=== PATIENT | male | born 1955 | race African-American/Black ===

== ENCOUNTER 2021-07-29 07:59 | Emergency (ER) | payer BC, OTHER ==
[~2021-07-29] VITALS: Ht 182.9 cm; Wt 158.8 kg
--- NOTE | 2021-07-29 08:22 | NUR ---
Patient bibra from snf, c/o chest pain, nitro given 3 tabs and aspirin with relief. On 2 lpm via nc, connected to the monitor and pulse ox. Kept comfortable, will continue to monitor accordingly.
[2021-07-29] MEDS ORDERED: BISA10SU11 RC (08:28)
[2021-07-29] MEDS ORDERED: HYDR-4209 PO (08:28)
[2021-07-29] MEDS ORDERED: GABA-532 PO (08:28)
[2021-07-29] MEDS ORDERED: TRAM100T39 PO (08:28)
[2021-07-29] MEDS ORDERED: CHOL200013 PO (08:28)
[2021-07-29] MEDS ORDERED: MULT-439 PO (08:28)
[2021-07-29] MEDS ORDERED: METO25TA6 PO (08:28)
[2021-07-29] MEDS ORDERED: APIX5TAB PO (08:28)
[2021-07-29] MEDS ORDERED: AMIN887L PO (08:28)
[2021-07-29] MEDS ORDERED: NA P133E RC (08:28)
[2021-07-29] MEDS ORDERED: SILD100T PO (08:28)
[2021-07-29] MEDS ORDERED: CYAN-51 PO (08:28)
[2021-07-29] MEDS ORDERED: TORS20TA3 PO (08:28)
[2021-07-29] MEDS ORDERED: MAGN400O6 PO (08:28)
--- NOTE | 2021-07-29 08:29 | NUR ---
covid swab collected and sent to lab.
[2021-07-29 08:42] LABS: BASOPHILS % (AUTO) 0.2 % (0.0-2.0); EOSINOPHILS % (AUTO) 0.7 % (0.0-6.0); HEMATOCRIT 42 % (39-51); LYMPHOCYTES # (AUTO) 1.4 K/uL (0.8-4.8); LYMPHOCYTES % (AUTO) 22.7 % (20.0-44.0); MEAN CORPUSCULAR HGB CONC 33 g/dl (31.0-36.0); MEAN CORPUSCULAR VOLUME 93 fL (80-96); MONOCYTES # (AUTO) 0.4 K/uL (0.1-1.30); MONOCYTES % (AUTO) 7.3 % (2.0-12.0); NEUTROPHILS # (AUTO) 4.1 K/uL (1.8-8.9); NEUTROPHILS % (AUTO) 69.1 % (43.0-81.0); PLATELET COUNT (AUTO) 240 K/uL (150-450); RED BLOOD CELL COUNT(AUTO) 4.58 MIL/uL (4.5-6.0)
--- NOTE | 2021-07-29 08:50 | NUR ---
MOVE SHEET SUBMITTED.
[2021-07-29 08:52] LABS: ALANINE AMINOTRANSFERASE 34 U/L (12-78); ALBUMIN 2.5 g/dL (3.4-5.0); ALKALINE PHOSPHATASE 80 U/L (46-116); ASPARTATE AMINOTRANSFERASE 21 U/L (15-37); BILIRUBIN,DIRECT 0.3 mg/dL (0.0-0.2); BILIRUBIN,TOTAL 0.8 mg/dL (0.2-1.0); CARBON DIOXIDE 25 mmol/L (21-32); CHLORIDE 102 mmol/L (98-107); CREATININE 2.7 mg/dL (0.6-1.3); GLUCOSE 110 mg/dL (74-106); POTASSIUM 5.1 mmol/L (3.5-5.1); SODIUM SERUM 134 mmol/L (136-145); TOTAL PROTEIN, SERUM 7.2 g/dL (6.4-8.2); UREA NITROGEN, BLOOD 51 mg/dL (7-18)
--- NOTE | 2021-07-29 08:55 | NUR ---
Janiya [phone]
--- NOTE | 2021-07-29 09:10 | NUR ---
CALLED [facility] [phone]
--- NOTE | 2021-07-29 09:40 | NUR ---
DR HERNANDEZ ON THE PHONE WITH DR CHICA RAMOS .
--- NOTE | 2021-07-29 09:58 | NUR ---
THE PATIENT IS ACCEPTED TO [facility] UNDER DR MADDY HAELY THE PATIENT WILL GO TO ER FOR REPORT CALL [phone] TRANSPO IS ARRANGED BY COLONY AND AUTOMATIC DRILLING MACHINE OPERATOR IS AT 1100
--- NOTE | 2021-07-29 10:09 | NUR ---
report given to William VINCENT from [facility] for sacha.
[2021-07-29 11:14] VITALS: BP 106/55
--- NOTE | 2021-07-29 11:15 | NUR ---
patient picked up by private ambulance in no distress going to [facility] ER in no distress, denies any pain.
== END 2021-07-29 11:15 | disposition short-term general hospital (02) ==
LOC: ER 08:02
DX: R07.9 Chest pain, unspecified (principal); Z88.8 Allergy status to other drugs, medicaments and biological substances; R29.810 Facial weakness; I48.91 Unspecified atrial fibrillation; Z79.01 Long term (current) use of anticoagulants; Z20.822 Contact with and (suspected) exposure to COVID-19
CPT/HCPCS: 36415; 71045; 80048; 80076; 84484; 85025; 87426; 93005; 99285; C9803; U0003

== ENCOUNTER 2021-11-19 21:53 | Inpatient (IN) | payer BC, MEDICARE, OTHER ==
[~2021-11-19] VITALS: Ht 180.3 cm; Wt 165.6 kg
[~2021-11-19 21:53] MED LIST: AMIN887L PO; APIX5TAB PO; BISA10SU11 RC; CHOL200013 PO; CYAN-51 PO; GABA-532 PO; HYDR-4209 PO; MAGN400O6 PO; METO25TA6 PO; MULT-439 PO; NA P133E RC; SILD100T PO; TORS20TA3 PO; TRAM100T39 PO
--- NOTE | 2021-11-19 22:01 | NUR ---
МАРИЯ MATHEW (DAUGHTER) - [phone]
[2021-11-19] MEDS ORDERED: ALBUTEROL FS 2.5 MG/3 ML VIAL.NEB ONE (22:11)
[2021-11-19] MEDS ORDERED: IPRATROPIUM NEB FS 0.5 MG/2.5 ML AMPUL.NEB ONE (22:11)
--- NOTE | 2021-11-19 22:15 | NUR ---
RT AT PT'S BEDSIDE
[2021-11-19] MEDS ORDERED: methylPREDNISolone SOD SUCC 125 MG/2ML VIAL ONE (22:19)
[2021-11-19 22:30] LABS: BASOPHILS % (AUTO) 0.6 % (0.0-2.0); HEMATOCRIT 41 % (39-51); HEMOGLOBIN 13.2 g/dL (13.5-17.5); LYMPHOCYTES # (AUTO) 0.8 K/uL (0.8-4.8); MEAN CORPUSCULAR HGB CONC 33 g/dl (31.0-36.0); MEAN CORPUSCULAR VOLUME 93 fL (80-96); MONOCYTES # (AUTO) 0.3 K/uL (0.1-1.30); MONOCYTES % (AUTO) 6.8 % (2.0-12.0); NEUTROPHILS # (AUTO) 3.7 K/uL (1.8-8.9); NEUTROPHILS % (AUTO) 76.6 % (43.0-81.0); PLATELET COUNT (AUTO) 112 K/uL (150-450); RED BLOOD CELL COUNT(AUTO) 4.35 MIL/uL (4.5-6.0); WHITE BLOOD COUNT (AUTO) 4.8 K/uL (4.3-11.0)
[2021-11-19] MEDS ORDERED: IPRATROPIUM NEB FS 0.5 MG/2.5 ML AMPUL.NEB NEB ONE (22:30)
[2021-11-19] MEDS ORDERED: ALBUTEROL FS 2.5 MG/3 ML VIAL.NEB CONTNEB ONE (22:30)
[2021-11-19] MEDS ORDERED: methylPREDNISolone SOD SUCC 125 MG/2ML VIAL IV ONE (22:30)
[2021-11-19 22:54] LABS: CARBON DIOXIDE 27 mmol/L (21-32); CHLORIDE 105 mmol/L (98-107); CREATININE 1.1 mg/dL (0.6-1.3); GLUCOSE 141 mg/dL (74-106); POTASSIUM 3.7 mmol/L (3.5-5.1); SODIUM SERUM 136 mmol/L (136-145); UREA NITROGEN, BLOOD 16 mg/dL (7-18)
--- NOTE | 2021-11-19 23:03 | NUR ---
BIB R 102 FROM [facility] C/O SOB&WHEEZING. DX BRONCHITIS X3 DAYS. COVID + AT [facility]. MANAGER BUILDING ALBUTERAL 5MG 8LPM GIVEN. ON 4LPM VIA N/C AT [facility] USUALLY. PT A/OX3. VSS. CONNECTED PT TO POX AND MONITOR
[2021-11-19 23:08] LABS: ALANINE AMINOTRANSFERASE 20 U/L (12-78); ALBUMIN 2.9 g/dL (3.4-5.0); ALKALINE PHOSPHATASE 86 U/L (46-116); ASPARTATE AMINOTRANSFERASE 13 U/L (15-37); BILIRUBIN,DIRECT 0.1 mg/dL (0.0-0.2); BILIRUBIN,TOTAL 0.2 mg/dL (0.2-1.0); TOTAL PROTEIN, SERUM 7.4 g/dL (6.4-8.2)
[2021-11-20] MEDS ORDERED: LEVOFLOXACIN 750 MG /D5W 150ML PIGGYBACK IV ONE (00:30)
[2021-11-20] MEDS ORDERED: LEVOFLOXACIN 750 MG /D5W 150ML 150 ML IV ONE (00:42)
[2021-11-20] MEDS ORDERED: ACETAMINOPHEN 325 MG TABLET PO PRN (01:00)
[2021-11-20] MEDS ORDERED: Z GUARD REMEDY 4 OZ OINT TP PRN (01:00)
[2021-11-20] MEDS ORDERED: ALBUTEROL FS 2.5 MG/3 ML VIAL.NEB NEB PRN (01:00)
[2021-11-20] MEDS ORDERED: ONDANSETRON HCL/PF 4 MG/2 ML VIAL IVP PRN (01:00)
[2021-11-20] MEDS ORDERED: IPRATROPIUM NEB FS 0.5 MG/2.5 ML AMPUL.NEB NEB PRN (01:00)
[2021-11-20] MEDS ORDERED: MAG HYDROX/AL HYDROX/SIMETH 30 ML UDC PO PRN (01:00)
[2021-11-20] MEDS ORDERED: MAGNESIUM HYDROXIDE 30 ML UDC PO PRN ×2 (01:00→11:30)
--- NOTE | 2021-11-20 01:08 | NUR ---
COVID PCR SWAB COLLECTED AND SENT TO LAB
[2021-11-20] MEDS ORDERED: PREG75CA PO (02:53)
[2021-11-20] MEDS ORDERED: ALPR-388 PO (02:53)
[2021-11-20] MEDS ORDERED: BISO5TAB20 PO (02:53)
--- NOTE | 2021-11-20 02:57 | NUR ---
room 201
--- NOTE | 2021-11-20 03:38 | NUR ---
REPORT GIVEN TO CARLTON CASTELLON
--- NOTE | 2021-11-20 03:38 | NUR ---
RN notes Received report from CARLTON Guerra ER nurse.
--- NOTE | 2021-11-20 04:04 | NUR ---
PT TRANSFERRED TO MS2 ROOM 201 VIA ACLS PROTOCOL. ALL BELONGINGS WITH PT. PT TOLERATED TRANSFER WELL.
[2021-11-20] MEDS: methylPREDNISolone SOD SUCC 40 MG/ML VIAL IV SCH ×3 (04:24→21:19)
[2021-11-20 04:30] VITALS: BP 140/86
--- NOTE | 2021-11-20 04:30 | NUR ---
admissions consultant notes Received Pt from ER nurse, CARLTON Landon. Pt is alert and orientedX4. Respiration on 3 L NC. No SOB. No S/S of distress noted. IV sites at L forearm # 20 is clean, intact and flush well and SL. Tele monitor showed afib hr at 90. Skin assessment is done and performed and pictures takes. Reorient Pt to the room and the use of call light. Pt verbalized understanding. Pt's belonging was checked by JINA Sepulveda. Safety precautions is maintained. Bed at low position, brakes locked, side rails upX2, hob elevated and call light is within reach. Will continue to monitor.
--- NOTE | 2021-11-20 06:40 | NUR ---
RN closing notes Pt is watching TV in bed comfortably. Pt is alert and orientedX4. Respiration on 3 L NC. No SOB. No S/S of distress noted. IV sites at L forearm # 20 is clean, intact and flush well and SL. Tele monitor showed afib hr at 99. Kept Pt clean, dry and comfortable. Safety precautions is maintained. Bed at low position, brakes locked, side rails upX2, hob elevated and call light is within reach. Will endorse to am nurse for GALINA.
--- NOTE | 2021-11-20 07:27 | NUR ---
RN NOTES PATIENT IN BED RESTING, CURRENTLY ON FACETIME VIDEO CALL W/ DAUGHTERS. NOT IN ACUTE DISTRESS. CALL LIGHT PROVIDED TO PATIENT.
[2021-11-20] MEDS ORDERED: IPRA4AER IH (07:50)
[2021-11-20] MEDS ORDERED: ASCO-352 PO (07:50)
[2021-11-20] MEDS ORDERED: ACET-868 PO (07:50)
[2021-11-20 08:00] VITALS: BP 155/88
[2021-11-20] MEDS: FUROSEMIDE 40 MG/4 ML VIAL IV SCH ×2 (08:21→11:21)
[2021-11-20] MEDS: PANTOPRAZOLE 40 MG TABLET.DR PO SCH (08:21)
[2021-11-20] MEDS: POTASSIUM CHLORIDE 20 MEQ TAB.PRT.SR PO SCH ×3 (08:21→09:51)
--- NOTE | 2021-11-20 08:40 | NUR ---
RN NOTES DIRECTOR RELIGIOUS EDUCATION AT BEDSIDE FOR ECHO.
[2021-11-20] MEDS ORDERED: APIXABAN 5 MG TABLET PO SCH (09:00)
--- NOTE | 2021-11-20 09:42 | NUR ---
RN NOTES OBTAINED CONTACT INFORMATION FROM PATIENT: МАРИЯ MATHEW (DTR, CONTACT FIRST) - [phone] DONNA HEARD (DTR, PROVIDES TRANSPORTATION) - [phone] GINO MENDES (DTR, [id number]) - [phone]
[2021-11-20] MEDS: TRAMADOL HCL 50 MG TABLET PO PRN (11:37)
[2021-11-20 12:00] VITALS: BP 160/74
[2021-11-20] MEDS: BISOPROLOL FUMARATE 5 MG TABLET PO SCH (12:13)
--- NOTE | 2021-11-20 13:00 | NUR ---
RN NOTES PATIENT SEEN BY DR. HERNANDEZ AT BEDSIDE.
[2021-11-20 16:00] VITALS: BP 159/99
[2021-11-20] MEDS: PREGABALIN 25 MG CAPSULE PO SCH (16:29)
[2021-11-20] MEDS: PROSOURCE / PROSTAT (PYXIS) 30 ML UDC PO SCH (16:29)
[2021-11-20] MEDS: APIXABAN 5 MG TABLET PO SCH (16:30)
--- NOTE | 2021-11-20 17:00 | NUR ---
RN NOTES RECEIVED CALL FOR DELIVERY OF [facility]; WILL DELIVER LATER TODAY.
--- NOTE | 2021-11-20 19:10 | NUR ---
TELE/RN OPENING NOTE RECEIVED PATIENT RESTING IN BED. AWAKE, ALERT AND ORIENTED X 4. ABLE TO MAKE NEEDS KNOWN. DENIES PAIN AT THIS TIME. CONTINUES ON O2 3L VIA NC WITH NO S/SX OF RESPIRATORY DISTRESS NOTED. IV ACCESS TO LEFT FOREARM #20G INTACT, PATENT AND SALINE LOCKED. CONTINUES ON IV ABX. TELE MONITOR IN PLACE WITH CURRENT READING AFIB CONTROLLED HR 93. CALL LIGHT WITHIN REACH. ASPIRATION, FALL AND SAFETY PRECAUTIONS MAINTAINED. WILL CONTINUE TO MONITOR.
--- NOTE | 2021-11-20 19:20 | NUR ---
RN NOTES PATIENT CHANGED IN BED AND REPOSITIONED; ABLE TO ASSIST W/ ADL AND BED MOBILITY. NOT IN ACUTE DISTRESS AT THIS TIME. DUE MEDS GIVEN TODAY. SAFETY MEASURES MAINTAINED. ENDORSED TO EMAIL DESIGNER RN FOR GALINA.
[2021-11-20 20:00] VITALS: BP 137/87
--- NOTE | 2021-11-20 23:28 | NUR ---
TELE/RN NOTE PATIENT WITH C/O PRODUCTIVE COUGH. UNABLE TO SLEEP. REQUESTING COUGH SYRUP. NOTIFIED MILK TESTER MD MÉNDEZ WITH NEW ORDER FOR GUAIFENESIN Q6HRS PRN. ORDER INPUTTED AND CARRIED OUT.
[2021-11-20] MEDS ORDERED: GUAIFENESIN 300 MG/15 ML UDC PO PRN (23:30)
[2021-11-20] MEDS ORDERED: GUAIFENESIN/D-METHORPHAN HB 5 ML UDC ONE (23:51)
[2021-11-20] MEDS ORDERED: GUAIFENESIN/D-METHORPHAN HB 5 ML UDC PO PRN (23:56)
[2021-11-21] VITALS: BP 105/59
--- NOTE | 2021-11-21 00:13 | NUR ---
TELE/RN NOTE NURSING PODIATRY DOCTOR HAD TO MANUALLY PULL OUT ROBITUSSIN MEDICATION. ORDER WAS CHANGED AFTER PODIATRY DOCTOR PULLED MEDICATION. NEW ORDER IS SMALLER DOSE THAN ORIGINAL. OMNICELL WOULDN'T ALLOW RETURN OF UNUSED MEDICATION. PLACED EXTRA DOSES IN PATIENTS CASSETTE.
[2021-11-21] MEDS: LEVOFLOXACIN 750 MG /D5W 150ML 750 MG in PREMIX 1 EA IV SCH (01:02)
[2021-11-21 04:00] VITALS: BP 163/107
[2021-11-21] MEDS: methylPREDNISolone SOD SUCC 40 MG/ML VIAL IV SCH ×3 (05:07→21:44)
[2021-11-21 06:01] LABS: BASOPHILS % (AUTO) 0.2 % (0.0-2.0); HEMATOCRIT 40 % (39-51); HEMOGLOBIN 13.1 g/dL (13.5-17.5); LYMPHOCYTES # (AUTO) 0.6 K/uL (0.8-4.8); LYMPHOCYTES % (AUTO) 9.7 % (20.0-44.0); MEAN CORPUSCULAR HGB CONC 33 g/dl (31.0-36.0); MEAN CORPUSCULAR VOLUME 93 fL (80-96); MONOCYTES # (AUTO) 0.4 K/uL (0.1-1.30); MONOCYTES % (AUTO) 5.5 % (2.0-12.0); NEUTROPHILS # (AUTO) 5.5 K/uL (1.8-8.9); NEUTROPHILS % (AUTO) 84.6 % (43.0-81.0); PLATELET COUNT (AUTO) 115 K/uL (150-450); RED BLOOD CELL COUNT(AUTO) 4.31 MIL/uL (4.5-6.0); WHITE BLOOD COUNT (AUTO) 6.5 K/uL (4.3-11.0)
--- NOTE | 2021-11-21 06:10 | NUR ---
TELE/RN OPENING NOTE PATIENT CURRENTLY RESTING IN BED. AWAKE, ALERT AND ORIENTED X 4. ABLE TO MAKE NEEDS KNOWN. DENIES PAIN AT THIS TIME. CONTINUES ON O2 3L VIA NC WITH NO S/SX OF RESPIRATORY DISTRESS NOTED. IV ACCESS TO LEFT FOREARM #20G INTACT, PATENT AND SALINE LOCKED. CONTINUES ON IV ABX. TELE MONITOR IN PLACE WITH CURRENT READING AFIB CONTROLLED. CALL LIGHT WITHIN REACH. ASPIRATION, FALL AND SAFETY PRECAUTIONS MAINTAINED. WILL ENDORSE PLAN OF CARE TO ONCOMING SHIFT.
--- NOTE | 2021-11-21 07:07 | NUR ---
TELE/RN OPENING NOTE RECEIVED PATIENT RESTING IN BED. AWAKE, ALERT AND ORIENTED X 4. ABLE TO MAKE NEEDS KNOWN. DENIES PAIN AT THIS TIME. PATIENT IS BREATHING EVENLY AND NONLABORED ON O2 3L VIA NC WITH NO S/SX OF RESPIRATORY DISTRESS NOTED. IV ACCESS TO LEFT FOREARM #20G INTACT, PATENT AND SALINE LOCKED. TELE MONITOR IN PLACE. SAFETY MEASURES IN PLACE CALL LIGHT WITHIN REACH. ASPIRATION, FALL AND SAFETY PRECAUTIONS MAINTAINED. WILL CONTINUE TO MONITOR.
[2021-11-21 08:00] VITALS: BP 151/100
[2021-11-21 08:18] LABS: ALANINE AMINOTRANSFERASE 59 U/L (12-78); ALBUMIN 2.6 g/dL (3.4-5.0); ALKALINE PHOSPHATASE 72 U/L (46-116); ASPARTATE AMINOTRANSFERASE 35 U/L (15-37); BILIRUBIN,TOTAL 0.3 mg/dL (0.2-1.0); CALCIUM, SERUM 8.2 mg/dL (8.5-10.1); CARBON DIOXIDE 28 mmol/L (21-32); CHLORIDE 104 mmol/L (98-107); GLUCOSE 130 mg/dL (74-106); PHOSPHORUS 2.9 mg/dL (2.5-4.9); POTASSIUM 4.2 mmol/L (3.5-5.1); SODIUM SERUM 138 mmol/L (136-145); UREA NITROGEN, BLOOD 21 mg/dL (7-18)
[2021-11-21 08:24] LABS: MAGNESIUM 2.1 mg/dL (1.8-2.4)
[2021-11-21] MEDS: PANTOPRAZOLE 40 MG TABLET.DR PO SCH (08:28)
[2021-11-21] MEDS: APIXABAN 5 MG TABLET PO SCH ×2 (08:28→16:15)
[2021-11-21] MEDS: PREGABALIN 25 MG CAPSULE PO SCH ×2 (08:29→16:15)
[2021-11-21] MEDS: CHOLECALCIFEROL (VITAMIN D 3) 400 UNIT TABLET PO SCH (08:29)
[2021-11-21] MEDS: BISOPROLOL FUMARATE 5 MG TABLET PO SCH (08:30)
[2021-11-21] MEDS: CYANOCOBALAMIN 500 MCG TABLET PO SCH (08:30)
[2021-11-21] MEDS: PROSOURCE / PROSTAT (PYXIS) 30 ML UDC PO SCH (08:30)
--- NOTE | 2021-11-21 11:01 | NUR ---
WOUND CARE CONSULT: REVIEWED CHART, NURSING DOCUMENTATION AND PHOTOS WHICH INDICATE RT LOWER LEG WOUND, REDNESS TO SKIN FOLDS AND OPEN AREA TO SACRUM/LEFT BUTTOCK AREA, PRESENT ON ADMISSION. SURGICAL AND DPM CONSULTS CALLED TO DR GERARDO AND DR. SALTER. RECOMMENDATIONS MADE FOR SKIN PROTECTION. DISCUSSED WITH NURSING STAFF. CURRENT JAIMEE SCORE IS 14. MD IN AGREEMENT WITH PLAN OF CARE.
[2021-11-21 12:00] VITALS: BP 154/92
--- NOTE | 2021-11-21 14:16 | NUR ---
RN NOTE SPOKE TO MORTGAGE BRANCH MANAGER, OKAY TO DC PROSTAT PATIENT IS TOLERATING REGULAR RENAL DIET
[2021-11-21 16:00] VITALS: BP 155/100
--- NOTE | 2021-11-21 16:00 | NUR ---
RN NOTE MD ORDERED MIDLINE, MIDLINE PLACED IN RIGHT UPPER ARM 18 GAUGE, PATENT AND INTACT. REMOVED OTHER LINE PER PATIENTS REQUEST
[2021-11-21] MEDS ORDERED: IPRATROPIUM/ALBUTEROL INHALER IH SCH (18:00)
--- NOTE | 2021-11-21 18:18 | NUR ---
TELE/RN CLOSING NOTE PATIENT RESTING IN BED. AWAKE, ALERT AND ORIENTED X 4. ABLE TO MAKE NEEDS KNOWN. DENIES PAIN AT THIS TIME. PATIENT IS BREATHING EVENLY AND NONLABORED ON O2 3L VIA NC WITH NO S/SX OF RESPIRATORY DISTRESS NOTED. IV ACCESS TO RIGHT UPPER ARM MIDLINE INTACT, PATENT AND SALINE LOCKED. TELE MONITOR IN PLACE. ALL MEDICATIONS WERE GIVEN ORDERED. PATIENT PLACE ON BARIATRIC BED TURNED AND REPOSITIONED PER PROTOCOL. SAFETY MEASURES IN PLACE CALL LIGHT WITHIN REACH. ASPIRATION, FALL AND SAFETY PRECAUTIONS MAINTAINED. BED LOW LOCKED AND CALL LIGHT WITHIN REACH. WILL ENDORSE TO ONCOMING SHIFT
[2021-11-21] MEDS: IPRATROPIUM NEB FS 0.5 MG/2.5 ML AMPUL.NEB NEB SCH (19:30)
[2021-11-21] MEDS: ALBUTEROL FS 2.5 MG/3 ML VIAL.NEB NEB SCH (19:30)
--- NOTE | 2021-11-21 19:30 | NUR ---
RN opening notes Received Pt from morning nurse. Pt is laying in bed comfortably watching TV. Pt is alert and orientedX4. Respiration is normal in room air. No SOB. No S/S of distress. IV site at R upperarm midline Is clean, intact and dry. Tele monitor showed afib. Safety precautions is maintained. Bed at low position, brakes locked, side rails upX3, hob elevated and call light is within reach. Will continue to monitor.
[2021-11-21 20:00] VITALS: BP 139/91
--- NOTE | 2021-11-21 23:00 | NUR ---
RN notes Called and spoke with oncall pharmacy Jono, to verify caridad.
[2021-11-21] MEDS: THERAHONEY GEL 1.5 OZ TUBE TP SCH (23:33)
--- NOTE | 2021-11-21 23:44 | NUR ---
RT NEB TX NOT GIVEN DUE TO PENDING COVID PCR TEST. PT IS AWAKE AND VERBAL ON ROOM AIR WITH SPO2 96%. NO RESPIRATORY DISTRESS NOTED.
[2021-11-22] VITALS: BP 149/98
[2021-11-22] MEDS: LEVOFLOXACIN 750 MG /D5W 150ML 750 MG in PREMIX 1 EA IV SCH (00:23)
[2021-11-22] MEDS: ALBUTEROL FS 2.5 MG/3 ML VIAL.NEB NEB SCH ×3 (01:30→13:30)
[2021-11-22] MEDS: IPRATROPIUM NEB FS 0.5 MG/2.5 ML AMPUL.NEB NEB SCH ×3 (01:30→13:30)
[2021-11-22 04:00] VITALS: BP 141/79
[2021-11-22] MEDS: methylPREDNISolone SOD SUCC 40 MG/ML VIAL IV SCH ×2 (04:20→13:55)
--- NOTE | 2021-11-22 06:30 | NUR ---
RN closing notes Pt is resting in bed comfortably. Pt is alert and orientedX4. Pt is on 3 L NC. No SOB. No S/S of distress. IV site at R upperarm midline is clean, intact and dry. Tele monitor showed afib with PVC hr 71. Routine meds were given as ordered. Wound care provided as ordered. Kept Pt clean, dry and comfortable. Safety precautions is maintained. Bed at low position, brakes locked, side rails upX3, hob elevated and call light is within reach. Will endorse to am nurse for GALINA.
--- NOTE | 2021-11-22 07:30 | NUR ---
GAS WELDING EQUIPMENT MECHANIC NOTES PT IN BED, ASLEEP, EASY TO AROUSE, ALERT AND ORIENTED, DENIES PAIN AT THJIS TIME, RESPIRATIONS NORMAL, CALL LIGHT WITHIN REACH, NEEDS ATTENDED.
[2021-11-22 08:00] VITALS: BP 140/89
[2021-11-22] MEDS: CYANOCOBALAMIN 500 MCG TABLET PO SCH (08:57)
[2021-11-22] MEDS: CHOLECALCIFEROL (VITAMIN D 3) 400 UNIT TABLET PO SCH (08:57)
[2021-11-22] MEDS: PANTOPRAZOLE 40 MG TABLET.DR PO SCH (08:57)
[2021-11-22] MEDS: BISOPROLOL FUMARATE 5 MG TABLET PO SCH (08:58)
[2021-11-22] MEDS: APIXABAN 5 MG TABLET PO SCH ×2 (09:00→17:15)
[2021-11-22] MEDS: THERAHONEY GEL 1.5 OZ TUBE TP SCH (10:45)
[2021-11-22 12:00] VITALS: BP 142/96
[2021-11-22] MEDS: TRAMADOL HCL 50 MG TABLET PO PRN (13:56)
[2021-11-22] MEDS: PREGABALIN 25 MG CAPSULE PO SCH ×2 (14:10→17:05)
[2021-11-22 16:00] VITALS: BP 138/70
[2021-11-22] MEDS ORDERED: P-EPHED SUL/LORATADINE (24H) 1 TAB.SR.24H PO SCH (16:00)
[2021-11-22] MEDS ORDERED: FLUTICASONE PROPIONATE 16 GM BOTTLE NS SCH (17:00)
[2021-11-22] MEDS ORDERED: FLUT16SP16 NS (18:05)
[2021-11-22] MEDS ORDERED: ALBUT2 NEB (18:05)
[2021-11-22] MEDS ORDERED: IPRA0.2S9 NEB (18:05)
[2021-11-22] MEDS ORDERED: PANT40TA49 PO (18:05)
[2021-11-22] MEDS ORDERED: COLL30OI TP (18:05)
[2021-11-22] MEDS ORDERED: P-EP-427 PO (18:05)
[2021-11-22] MEDS ORDERED: methylPREDNISolone SOD SUCC IV (18:05)
[2021-11-22] MEDS ORDERED: LEVO750T46 PO (18:06)
--- NOTE | 2021-11-22 19:12 | NUR ---
HEAD COOK NOTES PT IN BED, AWAKE, ALERT AND ORIENTED, NO COMPLAINT OF PAIN AT THIS TIME, RESPIRATIONS NORMAL, CALL LIGHT WITHIN REACH, SEEN BY DR. MUNSON TODAY, DISCHARGE ORDER GIVEN, DISCHARGE AND MEDICATION INSTRUCTIONS PROVIDED TO PT, VERBALIZED UNDERSTANDING, REPORT GIVEN TO IVAN VINCENT OF [facility], PM MEDS GIVEN ORDERED, ACCOUNTING MACHINE SERVICER TIME 8PM, PT INFORMED.
--- NOTE | 2021-11-22 20:10 | NUR ---
RN DC notes [facility] # [id number] two EMT Mando BELTRE came to cotton picking machine operator PT and transfer to [facility]. report given to EMT. Pt is alert and orientedX4. VS is stable. No SOB. No S/S of distress noted. BP 145/89, pulse 79, respiration is 18, O2 sat is 100% on 2 L NC, temp 97.9. EMT provided O2 for PT. DC paperwork signed by PT. Pt's belonging was checked and signed by PT and given to PT. Per am nurse keep GEOFF midline per [facility] request CARLTON Antunez ). Armband is removed.
[2021-11-23 11:07] LABS: *SPE A/G RATIO 0.8 (0.7-1.7); *SPE ALPHA-1-GLOBULIN 0.2 g/dL (0.0-0.4); *SPE ALPHA-2-GLOBULIN 0.9 g/dL (0.4-1.0); *SPE BETA GLOBULIN 0.9 g/dL (0.7-1.3); *SPE M-SPIKE Not Observed g/dL (Not Observed)
== END 2021-11-22 20:18 | DRG 291 ==
LOC: ER 21:59 → TRANSITION 11-20 01:56 → TELE2 11-20 02:58
PROVIDERS: ADMIT Nurse Practitioner Acute Care; ATTEND Registered Nurse
PROC: 05H533Z Insertion of Infusion Device into Right Subclavian Vein, Percutaneous Approach (ICD-10-PCS; principal; 2021-11-21)
PROC: B546ZZA Ultrasonography of Right Subclavian Vein, Guidance (ICD-10-PCS; 2021-11-21)
DX: I11.0 Hypertensive heart disease with heart failure (principal); L89.153 Pressure ulcer of sacral region, stage 3; I50.33 Acute on chronic diastolic (congestive) heart failure; D68.59 Other primary thrombophilia; I48.20 Chronic atrial fibrillation, unspecified; Z68.43 Body mass index [BMI] 50.0-59.9, adult; I87.311 Chronic venous hypertension (idiopathic) with ulcer of right lower extremity; L97.819 Non-pressure chronic ulcer of other part of right lower leg with unspecified severity; Z20.822 Contact with and (suspected) exposure to COVID-19; E66.01 Morbid (severe) obesity due to excess calories; K21.9 Gastro-esophageal reflux disease without esophagitis; G47.33 Obstructive sleep apnea (adult) (pediatric); I25.2 Old myocardial infarction; J20.9 Acute bronchitis, unspecified; Z87.01 Personal history of pneumonia (recurrent); Z86.73 Personal history of transient ischemic attack (TIA), and cerebral infarction without residual deficits; Z87.891 Personal history of nicotine dependence; Z79.01 Long term (current) use of anticoagulants; L85.3 Xerosis cutis; R09.82 Postnasal drip
CPT/HCPCS: 36410; 36415; 70220-TC; 71045-TC; 80048-TC; 80053-TC; 80076-TC; 83735-TC; 83880; 84100-TC; 84155; 84165; 84484-TC; 85025-TC; 85378-TC; 87081-TC; 93307-TC; 93970-TC; A4216; A6253; C9803; G0378; J1940; J1956; J2405; J2920; J2930; J7050; U0003